=== PATIENT | male | born 1960 | race Caucasian/White ===

== ENCOUNTER 2018-12-21 06:09 | Day surgery (SDC) | payer BC ==
[~2018-12-21] VITALS: Ht 188.1 cm; Wt 167.7 kg
[2018-12-21] VITALS (11 sets, daily range): BP systolic 135–156; BP diastolic 72–90; PULSE 59–104; TEMP 97.5–98.4
[2018-12-21] MEDS ORDERED: ZESTRIL 10MG10 MG PO (06:38)
[2018-12-21] MEDS ORDERED: LIPITOR 10MG10 MG PO (06:38)
[2018-12-21] MEDS ORDERED: SENNA-S 50 MG-81 TAB PO (06:39)
[2018-12-21] MEDS ORDERED: PYRIDIUM 100MG100 MG PO (06:40)
[2018-12-21] MEDS ORDERED: NORCO 325 MG-51 TAB PO (06:41)
--- NOTE | 2018-12-21 06:56 | NUR ---
Pt. arrived to the floor via wheelchair. Pt. is A&OX3, assessement complete. Pt. prepped for surgery. Pt. denies pain or other needs. call light within reach.
--- NOTE | 2018-12-21 09:45 | NUR ---
Patient is back from surgery. He is doing well. He denies pain and nausea at this time. He is drowsy. Explained before leaving he has to eat, drink and urinate before going home. Patient verbalized understanding. No other changes at this time. Call light within reach.
--- NOTE | 2018-12-21 11:49 | NUR ---
Patient was sleeping.
--- NOTE | 2018-12-21 14:45 | NUR ---
Patient is discharging home. Discharge instructions discussed with patient. No questions verbalized. Patient is discharging with external stent. Explained to keep area clean by washing with soap and water. Explained the office will call with his follow up appointment and instructions for his stent. Patient verbalized understanding. Copies of discharge instructions sent with patient. All belongings packed up and sent with patient. Patient walked out with this nurse.
== END 2018-12-21 14:45 | disposition home or self-care (01) ==
LOC: SDCO 06:09 → SURG 06:10 → SDCO 08:00
DX: N20.1 Calculus of ureter (principal); I10 Essential (primary) hypertension; F32.9 Major depressive disorder, single episode, unspecified; G47.00 Insomnia, unspecified; E11.9 Type 2 diabetes mellitus without complications; L40.9 Psoriasis, unspecified; E29.1 Testicular hypofunction; M17.0 Bilateral primary osteoarthritis of knee; E66.01 Morbid (severe) obesity due to excess calories; Z68.42 Body mass index [BMI] 45.0-49.9, adult; Z87.891 Personal history of nicotine dependence; Z87.11 Personal history of peptic ulcer disease; Z80.9 Family history of malignant neoplasm, unspecified; Z82.3 Family history of stroke; Z82.49 Family history of ischemic heart disease and other diseases of the circulatory system; Z82.5 Family history of asthma and other chronic lower respiratory diseases; Z79.84 Long term (current) use of oral hypoglycemic drugs
CPT/HCPCS: OP; C1769; C2617; J0690; J1100; J2405; J2704; J3010; J7030; Q9967